=== PATIENT | male | born 1995 | race Caucasian/White ===

== ENCOUNTER → 2025-01-14 | Day surgery (SDC) | payer OTHER ==
[~2025-01-14] VITALS: Ht 185.4 cm; Wt 107.3 kg
[~2025-01-14] MED LIST: AMPICILLIN SODIUM 2 GM/NS 100 ML IV ONE; CLON-592 PO; CLON0.1T2 PO; DEXAMETHASONE SOD PHOS 4 MG/ML VIAL ONE; DIPH50CA35 PO; DOCU-412 PO; FentaNYL CITRATE PF 100 MCG/2 ML VIAL IVP PRN; GLYCOPYRROLATE 0.2 MG/ML VIAL ONE; HYDROmorphone HCL 2 MG/ML SYRINGE IVP PRN; LEVO50 PO; LIDOCAINE/PF 2% 5 ML VIAL ONE; LORA0.5T20 PO; MEPERIDINE-PF 25 MG/ML VIAL IVP PRN; ONDANSETRON HCL 4 MG/2 ML VIAL ONE; OXYGEN THERAPY IH SCH; PROPOFOL 1% 20 ML VIAL IVP ONE; RINGERS SOLUTION,LACTATED 1,000 ML IV ONE; RISP4TAB94 PO; SUGAMMADEX SODIUM 200 MG/2 ML VIAL IVP ONE; TRAZ150T80 PO; VALP250S27 PO
[2025-01-14 08:19] LABS: BASOPHILS % (AUTO) 0.8 % (0.0-2.0); EOSINOPHILS % (AUTO) 2.6 % (1.0-6.0); HEMATOCRIT 44.1 % (41-53); LYMPHOCYTES % (AUTO) 50.2 % (22.0-44.0); MEAN CORPUSCULAR HEMOGLOBIN 31.2 pg (26.0-34.0); MEAN CORPUSCULAR HGB CONC 33.9 G/dL (31.0-37.0); MEAN CORPUSCULAR VOLUME 92 fL (80-100); MONOCYTES # (AUTO) 0.8 K/uL (0.1-1.0); MONOCYTES % (AUTO) 12.9 % (2.0-9.0); NEUTROPHILS % (AUTO) 33.5 % (40.0-70.0); PLATELET COUNT (AUTO) 190 K/uL (150-450); RED CELL DISTRIBUTION WIDTH 13.2 % (11.5-14.5)
[2025-01-14 08:28] LABS: ANION GAP 9 mmol/L (8-16); CALCIUM, TOTAL 9.1 mg/dL (8.8-10.5); CARBON DIOXIDE 27 mmol/L (22-29); CHLORIDE 104 mmol/L (98-107); CREATININE 0.77 mg/dL (0.60-1.30); GLOMERULAR FILTR. RATE CALC > 60 mL/min (>60); GLUCOSE,RANDOM 87 mg/dL (70-110); POTASSIUM 3.9 mmol/L (3.5-5.1); SODIUM SERUM 140 mmol/L (136-145); UREA NITROGEN, BLOOD 11 mg/dL (7-18)
[2025-01-14 08:35] LABS: ALANINE AMINOTRANSFERASE 47 U/L (12-78); ALBUMIN 3.7 g/dL (3.4-5.0); ALKALINE PHOSPHATASE 54 U/L (46-116); ASPARTATE AMINOTRANSFERASE 27 U/L (15-37); BILIRUBIN,TOTAL 0.5 mg/dL (0.1-1.0); PROTHROMBIN TIME 11.2 SEC (9.4-11.6); TOTAL PROTEIN, SERUM 7.1 g/dL (6.4-8.2)
[2025-01-14] MEDS: RINGERS SOLUTION,LACTATED 1,000 ML IV ONE (09:44)
== END | disposition still patient (30) ==
LOC: SURGERY 06:10
PROVIDERS: ATTEND Dentist General Practice
DX: K02.9 Dental caries, unspecified (principal); K05.30 Chronic periodontitis, unspecified; K03.6 Deposits [accretions] on teeth; F84.0 Autistic disorder; E03.9 Hypothyroidism, unspecified; Z87.01 Personal history of pneumonia (recurrent); Z79.01 Long term (current) use of anticoagulants; Z79.899 Other long term (current) drug therapy; Z98.890 Other specified postprocedural states
CPT/HCPCS: 41899; 71045; 80053; 85025; 85610; 85730; 36415; 93005; J0290; J2704; J1100; J3490 ×3; J2405; J7120